=== PATIENT | female | born 1990 | race Caucasian/White ===

== ENCOUNTER 2018-09-11 21:28 | Emergency (ER) | payer OTHER ==
[~2018-09-11] VITALS: Ht 165.1 cm; Wt 59.0 kg
--- OUTSIDE RECORDS SUMMARY | 2018-09-11 21:32 | XMS REPORT | Summary of Care ---
Author Author Esvin Bonilla, [facility] Unknown Address [facility] Phone Unavailable Care Team Providers Care Micro Computer Specialist Name Role Phone NOHEMI MEJIA M.D. Unavailable Unavailable Unavailable Unavailable Functional Status Name Dates Details Functional status health issues are not documented Status: Name Dates Details Cognitive status health issues are not documented Status: Problems Name Dates Details Status: Active Headache (784.0, R51) Status: Active Numbness of leg (782.0, R20.0) Status: Active Normal (V22.2, Z34.90) Status: Active Uterine prolapse (618.1, N81.4) Status: Active exam (V24.2, Z39.2) Status: Active test positive (V72.42, Z32.01) Status: Active Encounter for routine gynecological examination with Papanicolaou smear of cervix (V72.31, Z01.419) Status: Active Screening for STDs (sexually transmitted diseases) (V74.5, Z11.3) Status: Active Flu vaccine need (V04.81, Z23) Status: Active Nexplanon insertion (V25.5, Z30.017) Status: Active Nexplanon removal (V25.43, Z30.46) Status: Active Medications Name Dates Details Vyvanse 50 MG Oral Capsule TAKE 1 CAPSULE DAILY IN THE MORNING. * Start : 10-Oct-2016 Active TraZODone HCl TABS * Refills: 0 Active Allergies and Adverse Reactions Name Dates Details No Known Drug Allergies (Allergy) Status: Active Past Medical History Name Dates Details History of No significant past medical history Status: Resolved Procedures Procedure Dates Details . [facility] - Affirm VPIII (BV Panel) Date: 14-Jul-2018 [QLH] RPR Date: 15-Jul-2018 [QH] HIV AB, HIV 1/2, EIA, WITH REFLEXES Date: 15-Jul-2018 [QH] HEPATITIS B SURFACE ANTIGEN W/REFL CONFIRM Date: 15-Jul-2018 [QLH] HEPATITIS C ANTIBODY Date: 15-Jul-2018 History of Breast augmentation Completed Immunization Name Dates Details Tdap Lot #: [id number] on: 28-Mar-2015 Fluzone Quadrivalent 0.5 ML Intramuscular Suspension Lot #: [id number] on: 14-Jul-2018 Family History Name Dates Details Family history of VCF (Clvo-Beznsf-Vqloln) syndrome (758.32, Q93.81) Status: Active Social History Name Dates Details - Status: Name Dates Details Never smoker Vital Signs Date Test Result Details [id number] BP Systolic 106 mm[Hg] Status: BP Diastolic 65 mm[Hg] Status: Height 66 in Status: Weight 136 lb Status: Body Mass Index Calculated 21.95 kg/m2 Status: Body Surface Area Calculated 1.7 m2 Status: Temperature 98.5 f Status: Heart Rate 75 /min Status: :02 Physical Findings 0 Status: Comments: PHQ-9 Adult Depression Screening :59 BP Systolic 116 mm[Hg] Status: Comments: Location: LUE; Position: Sitting BP Diastolic 80 mm[Hg] Status: Comments: Location: LUE; Position: Sitting Height 66 in Status: Weight 134.25 lb Status: Body Mass Index Calculated 21.67 kg/m2 Status: Body Surface Area Calculated 1.69 m2 Status: Temperature 97.4 f Status: Comments: Method: Oral Heart Rate 68 /min Status: O2 SAT 99 % Status: Results Date Description Value Details [id number] . [facility] - PAP Comments: Department of Pathology & Laboratory Medicine For: [facility] [id number] Wilson MD [place] [address] Phone: [phone] Email: [email or web address] [email or web address] Thin Prep LMP: 06/29/2018 Clinical History: Routine, STD screening HPVHPV 16 & 18/45GC/Chlamydia Statement of Adequacy:Satisfactory for evaluation.Endocervical/transformation component present. Diagnosis:Negative for intraepithelial lesion or malignancy. Heating Technician: Lorna Lassiter VPMTrichomonas~NegativeGardnerella~NegativeCandida~NegativeThe Affirm VPIII Microbial Identification Test for Sue species (C. albicans, C.glabrata, C. kefyr, C. krusei, C. parapsilosis, C. tropicalis) can detect 1 x 10(4) CFUof Sue species in log phase per assay, 2 x 10(5) CFU of G. vaginalis in log phase perassay and 5 x 10(3) , and trichomonads (T. vaginalis) per assay. A negative test resultdoes not exclude the possibility of vaginitis/vaginosis. As in many clinical situations,diagnosis should not be based on the results of a single laboratory test. Results shouldbe interpreted in conjunction with other clinical and laboratory data available to theclinician such as pH, amine odor, clue cells and vaginal discharge characteristics.Simultaneous infections by more than one organism are common.Di yuliaimer:Testing is performed using FDA-approved Affirm BREAKER TENDER III Microbial Identification system,i.e., nucleic acid hybridization. The assay has been validated/verified by the [facility] [place] [facility] of Pathology & Laboratory Medicine. The performance of this test on patient specimens collected during or immediately afterantimicrobial therapy is unknown. The presence or absence of Sue species, G.vaginalis or T. vaginalis cannot be used as a test for therapeutic success or failure.Zandra Vickers MD, PhD GC/ChlamydiaGC~NegativeChlamydia~Negative~Testing is performed using FDA- approved APTIMA COMBO 2 Assay on the J[employer] system(i.e., Rn Recovery- mediated amplification of rRNA followed by target-specifichybridization and dual kinetic fluorescence detection). This assay is designed for thedetection of Chlamydia trachomatis (CT) and Neisseria gonorrhoeae (GC) in femaleendocervical and vaginal, male urethral, and female and male urine specimens. CT/GCviability and/or infectivity can't be inferred from a positive test result since targetRNA may persist in the absence of infectious microorganisms. A negative test doesn'texclude the possibility of infection due to possible improper specimencollection/transport/handling (inadequate specimen collection), presence of inhibitor(s),concurrent antibiotic therapy, or presence of insufficient RNA for detection. The testresult must be interpreted in conjunction with other laboratory and clinical data. Theassay is not intended to replace cervical exams and endocervical specimens for diagnosisof female urogenital infections. The assay is not intended for the evaluation ofsuspected sexual abuse or for other medicao-legal indications. For those patients forwhom a false positive result may have adverse psycho-social impact, the CDC recommendsretesting. The assay has been validated by the [facility] Department of Pathology and Laboratory Medicine.Zandra Vickers MD, PhD HPVHigh Risk~NegativeTesting is performed using FDA-approved APTIMA HPV assay (i.e., Rn Recovery-mediatedamplification of E6/E7 viral mRNA followed by hybridization protection assay). Thisassay is designed to detect the 14 high- risk types of human papillomavirus (HPV Types 16,18, 31, 33, 35, 39, 45, 51, 52, 56, 58, 59, 66 and 68) known to cause cervical cancer. The assay has been reported to detect more than 90% of CIN3+, an immediate precursor tocarcinoma in situ. A negative result does not exclude the possibility of cytologicabnormalities or of future or underlying CIN2, CIN3, or cancer. Personal lubricantscontaining polyquaternium 15 and antifungal medications containing tioconazole mayinterfere with the assay performance. In vitro transcripts from low-risk HPV [id number], 67, 70 and 82 exhibited cross- reactivity with the assay. The test result must beinterpreted along with the patient's cytology history, other risk factors and otherpertinent laboratory data. The results of this test are not intended to substitute forregular cervical cytology screening. The assay performance has not been evaluated forHPV vaccinated individuals. The effects of other potential variables, such as vaginaldischarge, use of tampons, etc. and specimen collection variables have not beenevaluated.This assay has been validated by the [facility] Department of Pathology and Laboratory Medicine.Zandra Vickers MD, PhD The pap smear is a screening test used as an aid in detecting cervical cancer and itsprecursors. Published data indicates that pap smear testing is subject to false negativeand false positive results. For this reason, periodic repeat testing and follow up of anyunexplained clinical signs and symptoms is recommended.This slide was screened with the aid of the [employer] System. PAP REPORT [id number] . [facility] - GC/Chlamydia GC REPORT Negative Chlamydia REPORT Negative [id number] . [facility] - HPV High Risk HPV High Risk REPORT Negative [id number] [O] Urine Test (in office) Test, Urine neg (Normal) Plan of Care Name Dates Details Planned Observations Planned Goals not documented Planned Encounters Appointment; NOHEMI MEJIA M.D. On: 14-Jul-2019 9:15 Interventions Provided Instructions* Patient Specific Education Given; Done: 12 Aug 2018 Discussion/Summary* Nexplanon exchange. Instructions Name Dates Details Instructions not documented Encounters Appointment; NOHEMI MEJIA M.D. Encounter Diagnosis: Problem not documented On: 10-Oct-2016 10:45 Appointment; KADI JIMENEZ NP Encounter Diagnosis: Problem not documented On: 14-Jul-2018 8:30 Appointment; NOHEMI MEJIA M.D. Encounter Diagnosis: Problem not documented On: 12-Aug-2018 9:00
[2018-09-12] MEDS ORDERED: ACETAMINOPHEN 325 MG TAB PO ONE (00:15)
[2018-09-12] MEDS ORDERED: LIDOCAINE HCL 2% JELLY 5 ML TUBE TOP ONE (03:30)
[2018-09-12] MEDS ORDERED: BUPIVACAINE HCL 0.25% 10ML MPF VIAL INJ ONE (03:30)
[2018-09-12] MEDS ORDERED: LIDOCAINE HCL 2% 30 ML TUBE ONE (04:01)
== END 2018-09-12 05:00 | disposition home or self-care (01) ==
LOC: ER 21:28
DX: S01.511A Laceration without foreign body of lip, initial encounter (principal); W25.XXXA Contact with sharp glass, initial encounter; Y92.000 Kitchen of unspecified non-institutional (private) residence as the place of occurrence of the external cause
CPT/HCPCS: 99282